=== PATIENT | male | born 1990 | race Caucasian/White ===

== ENCOUNTER 2017-06-30 14:12 | Emergency (ER) | payer OTHER ==
[~2017-06-30] VITALS: Ht 177.8 cm; Wt 51.0 kg
[~2017-06-30 14:12] MED LIST: ASCORBIC ACID500 M3 PO; FLEXERIL10 MG PO; KEFLEX500 MG PO; LORTAB 5-325 M1 EACH PO; NAPROSYN500 MG PO; OMEPRAZOLE40 M1 PO; ULTRAM50 MG PO; ZANTAC150 MG PO; ZITHROMAX250 MG PO
[2017-06-30 16:08] LABS: HEMATOCRIT 43.1 % (38.0-50.0); MCH 29.4 PG (29.0-34.0); MCHC 33.9 G/DL (30.0-36.0); MCV 86.7 FL (86-99); MEAN PLAT.VOLUME 10.5 uM^3 (9.0-12.4); PLATELET COUNT 240 K/uL (156-360); RED BLOOD COUNT 4.97 M/uL (4.00-5.50); WHITE BLOOD COUNT 8.8 K/uL (4.1-10.2)
[2017-06-30 16:14] LABS: ADD MIUA? YES; BILIRUBIN NEGATIVE; BLOOD NEGATIVE; GLUCOSE (STRIP) NEGATIVE; KETONES NEGATIVE; LEUKOCYTES NEGATIVE; NITRITE NEGATIVE; PROTEIN (STRIP) 100; SPECIFIC GRAVITY 1.033 (1.000-1.030)
[2017-06-30 16:17] LABS: COLOR YELLOW ((YELLOW))
[2017-06-30 16:19] LABS: CHLORIDE 102 mEq/L (99-109); POTASSIUM 4.4 mEq/L (3.7-5.4); SODIUM 137 mEq/L (136-147)
[2017-06-30 16:21] LABS: GLUCOSE 86 mg/dL (70-99)
[2017-06-30 16:23] LABS: ANION GAP 8 MEQ/L (2-14); TOTAL BILIRUBIN 0.4 mg/dL (0.0-1.0)
[2017-06-30 16:25] LABS: ALKALINE PHOSPHATASE 96 IU/L (3-129); GFR ESTIMATE (CALCULATED) > 59 mL/min/
[2017-06-30 16:26] LABS: UREA NITROGEN (BUN) 11 mg/dL (9-23)
[2017-06-30 16:45] LABS: RED BLOOD CELLS 0-5 /HPF (0-5); WHITE BLOOD CELLS 0-5 /HPF (0-5)
[2017-06-30 16:46] LABS: BACTERIA RARE /HPF; CASTS NONE SEEN /LPF; CRYSTALS NONE SEEN; EPITHELIAL CELLS RARE /HPF; MUCUS 3+ /LPF
[2017-06-30] MEDS ORDERED: ZOFRAN ODT4 MG PO (16:53)
[2017-06-30] MEDS ORDERED: ZITHROMAX250 MG PO (16:53)
[2017-06-30] MEDS ORDERED: CHLORASEPTIC177 ML MM (16:53)
[2017-06-30 17:22] VITALS: BP 119/70
== END 2017-06-30 17:23 | disposition home or self-care (01) ==
LOC: EME 14:12
PROVIDERS: Nurse Practitioner Family
DX: J02.0 Streptococcal pharyngitis (principal); R11.2 Nausea with vomiting, unspecified; M79.1 Myalgia; F17.200 Nicotine dependence, unspecified, uncomplicated
CPT/HCPCS: 80053; 81003; 85027; 87651 90; 99281; 99283

== ENCOUNTER 2017-08-02 18:30 | Emergency (ER) | payer OTHER ==
[~2017-08-02] VITALS: Ht 172.7 cm; Wt 49.2 kg
[~2017-08-02 18:30] MED LIST changes: +CHLORASEPTIC177 ML MM; +ZOFRAN ODT4 MG PO
[2017-08-02 19:05] LABS: EOSINOPHIL (%) 0.6 % (0-5); EOSINOPHIL COUNT 0.1 K/uL (0-0.3); HEMATOCRIT 40.2 % (38.0-50.0); IMMATURE GRANULOCYTE (%) 0.2 % (0.0-0.7); LYMPHOCYTE COUNT 1.8 K/uL (1.0-2.8); MCH 29.4 PG (29.0-34.0); MCHC 33.8 G/DL (30.0-36.0); MCV 86.8 FL (86-99); MEAN PLAT.VOLUME 10.5 uM^3 (9.0-12.4); MONOCYTE (%) 9.4 % (3-12); MONOCYTE COUNT 0.9 K/uL (0-0.8); NEUTROPHIL (%) 71.6 % (45-76); PLATELET COUNT 224 K/uL (156-360); RBC DIS.WIDTH-CV 12.8 % (11.8-14.6); RBC DIS.WIDTH-SD 40.2 % (39-53); RED BLOOD COUNT 4.63 M/uL (4.00-5.50); WHITE BLOOD COUNT 9.7 K/uL (4.1-10.2)
[2017-08-02 19:17] LABS: CHLORIDE 102 mEq/L (99-109); POTASSIUM 4.5 mEq/L (3.7-5.4); SODIUM 137 mEq/L (136-147)
[2017-08-02 19:18] LABS: GLUCOSE 84 mg/dL (70-99)
[2017-08-02 19:20] LABS: ANION GAP 10 MEQ/L (2-14)
[2017-08-02 19:22] LABS: GFR ESTIMATE (CALCULATED) > 59 mL/min/; SERUM ETHYL ALCOHOL < 10 mg/dL
[2017-08-02 19:23] LABS: UREA NITROGEN (BUN) 15 mg/dL (9-23)
[2017-08-02 19:35] LABS: ADD MIUA? YES; BILIRUBIN NEGATIVE; BLOOD NEGATIVE; COLOR YELLOW ((YELLOW)); GLUCOSE (STRIP) NEGATIVE; KETONES 5; LEUKOCYTES NEGATIVE; NITRITE NEGATIVE; PROTEIN (STRIP) 30; SPECIFIC GRAVITY 1.018 (1.000-1.030); UROBILINOGEN 0.2 MG/DL (0.2-1.0)
[2017-08-02 19:55] LABS: BACTERIA RARE /HPF; EPITHELIAL CELLS NONE SEEN /HPF; MUCUS 3+ /LPF; RED BLOOD CELLS 0-5 /HPF (0-5); UCUL ADDED? NO; WHITE BLOOD CELLS 0-5 /HPF (0-5)
[2017-08-02] MEDS ORDERED: LIDODERM 5% P1 PATCH TD (21:39)
[2017-08-02 22:17] VITALS: BP 102/50
== END 2017-08-02 22:17 | disposition home or self-care (01) ==
LOC: EME 18:30
PROVIDERS: Emergency Medicine
DX: R55 Syncope and collapse (principal); M54.5 Low back pain; R42 Dizziness and giddiness; F17.200 Nicotine dependence, unspecified, uncomplicated
CPT/HCPCS: 72100; 80048; 81003; 85025; G0480; J7030